=== PATIENT | female | born 1995 | race Caucasian/White ===

== ENCOUNTER → 2017-12-20 12:29 | Outpatient (CLI) | payer BC, MEDICAID, SELFPAY ==
[2017-12-20 13:40] LABS: Basophils % 0.4 % (0.1-2.0); Eosinophils % 0.2 % (0.1-12.0); Hematocrit 32.2 % (37.0-47.0); Hemoglobin 10.1 g/dL (12.2-16.2); Lymphocytes # 1.8 K/mm3 (0.7-4.5); Mean Corpuscular HGB Conc 31.4 g/dL (31.8-35.4); Mean Corpuscular Hemoglobin 27.6 pg (27.0-31.2); Mean Corpuscular Volume 88.1 fl (81-99); Mean Platelet Volume 7.6 fl (7.4-10.4); Monocytes # 0.4 K/mm3 (0.1-1.0); Monocytes % 4.9 % (1.7-9.3); Neutrophils # 5.8 K/mm3 (1.8-7.8); Neutrophils % 71.6 % (37.0-80.0); Platelet Count 268 K/mm3 (142-424); Red Blood Count 3.66 M/mm3 (4.20-5.40); Red Cell Distribution Width 14.5 % (11.5-17.5)
[2017-12-20 14:49] LABS: Free Thyroxine Index 4.2 ug/dL (5.93-13.13); T4 (Thyroxine) 17.4 ug/dl (4.7-13.3); Thyroid Stimulating Hormone 15.64 uIU/ml (0.358-3.740); Triiodothryronine (T3) Uptake 24 % (31-39)
== END ==
PROVIDERS: PCP Family Medicine; Visit Provider Nurse Practitioner Obstetrics & Gynecology
DX: Z34.90 Encounter for supervision of normal pregnancy, unspecified, unspecified trimester (principal); Z3A.27 27 weeks gestation of pregnancy; E03.9 Hypothyroidism, unspecified; D64.9 Anemia, unspecified
CPT/HCPCS: 36415; 84436; 84443; 84479; 85025

== ENCOUNTER → 2018-02-13 14:28 | Outpatient (CLI) | payer MEDICAID, SELFPAY ==
[2018-02-13 18:12] LABS: Free T4 (Free Thyroxine) 0.54 ng/dl (0.76-1.46)
[2018-02-13 18:17] LABS: Thyroid Stimulating Hormone 146.76 uIU/ml (0.358-3.740)
== END ==
PROVIDERS: Visit Provider Nurse Practitioner Obstetrics & Gynecology
DX: O99.280 Endocrine, nutritional and metabolic diseases complicating pregnancy, unspecified trimester (principal); Z34.90 Encounter for supervision of normal pregnancy, unspecified, unspecified trimester; Z3A.35 35 weeks gestation of pregnancy; Z86.39 Personal history of other endocrine, nutritional and metabolic disease; E07.9 Disorder of thyroid, unspecified
CPT/HCPCS: 36415; 84439; 84443; 86403

== ENCOUNTER 2018-03-17 06:48 | Inpatient (IN) ==
[2018-03-17 07:12] LABS: Microscopic, Urine URINE MICROSCOPIC (MICROSCOPIC)
[2018-03-17 07:13] LABS: Appearance,Urine CLOUDY (Clear); Bilirubin,Urine Negative (Negative); Blood, Urine 2+ (Negative); Color,Urine YELLOW (Yellow); Glucose,Urine (UA) Negative (Negative); Ketones,Urine Negative (Negative); Leukocyte Esterase,Urine 1+ (Negative); PH,Urine 7.5 (5.0-8.5); Protein,Urine Negative (Negative); Specific Gravity, Urine <= 1.005 (1.005-1.030); Urobilinogen,Urine 0.2 EU/dl (0.2)
[2018-03-17 07:22] LABS: Bacteria,Urine 4+ /lpf
[2018-03-17 07:23] LABS: Amphetamine/Metha Screen,Urine Negative ng/mL (<1000); Barbiturates Screen,Urine Negative ng/mL (<200); Benzodiazepines Screen,Urine Negative ng/mL (<200); Cannabinoid Screen,Urine Negative ng/mL (<50); Cocaine Screen,Urine Negative ng/mL (<300); Methadone Screen,Urine Negative ng/mL (<300); Opiate Screen,Urine Negative ng/mL (<300); Phencyclidine Screen,Urine Negative ng/mL (<25)
[2018-03-17 07:25] VITALS: BP 116/81
[2018-03-17 08:17] LABS: Basophils % 0.3 % (0.1-2.0); Eosinophils # 0.1 K/mm3 (0.0-0.4); Hematocrit 42.1 % (37.0-47.0); Hemoglobin 13.8 g/dL (12.2-16.2); Lymphocytes # 2.1 K/mm3 (0.7-4.5); Lymphocytes % 30.4 K/mm3 (10-50); Mean Corpuscular HGB Conc 32.8 g/dL (31.8-35.4); Mean Corpuscular Hemoglobin 30.9 pg (27.0-31.2); Mean Corpuscular Volume 94.2 fl (81-99); Mean Platelet Volume 7.4 fl (7.4-10.4); Monocytes # 0.6 K/mm3 (0.1-1.0); Monocytes % 8.1 % (1.7-9.3); Neutrophils # 4.1 K/mm3 (1.8-7.8); Neutrophils % 60.2 % (37.0-80.0); Platelet Count 258 K/mm3 (142-424); Red Blood Count 4.46 M/mm3 (4.20-5.40); Red Cell Distribution Width 19.4 % (11.5-17.5); White Blood Count 6.9 K/mm3 (4.8-10.8)
--- NOTE | 2018-03-17 10:03 | History & Physical Report ---
OB - H&P: HPI Antepartum - History of Present Illness Chief complaint: Contractions and ruptured membranes. History of present illness: She is a 22-year-old 1 para 0 at 40+ weeks gestational age. She ruptured her membranes at 5 AM this morning and was having contractions. She came into labor and delivery. [facility] History I have reviewed the patient's past medical history: Yes Medical History: Denies:: Anxiety, Asthma, Cancer, Depression, Diabetes Mellitus Type 1, Diabetes Mellitus Type 2, Hypertension, MRSA, Seizures Other Medical History: Reports: Hypothyroidism Other Surgeries: Yes: No Previous Surgery. No: Amputation: No Fractures: No - *Social History Educational Level: Completed High School Smoking Status: Former smoker Tobacco Type: e-cigarettes #Yrs smoked (if former smoker): 1 Smoking End Date: 08/27/2016 Alcohol Intake: never Substance Use Type: denies use Occupational Status: unemployed - Psychiatric History Expresses thoughts of harming self/others: None Suicide Plan Description: No Plan Pschychiatric History:: Denies:: Anxiety, Depression *Family Hx:: Thyroid Disorder, Asthma Para: 0 Review of Systems - Review of Systems Review of systems:: pertinent systems reviewed and negative unless documented below Meds Home Medications Medication Instructions Recorded Confirmed Type Ferrous Sulfate 325 mg PO DAILY 03/17/18 03/17/18 History Vit Calc,Iron,Folic [Kpn] 1 tab PO QHS 03/17/18 03/17/18 History Allergies Allergy/AdvReac Type Severity Reaction Status Date / Time codeine Allergy Intermediate swelling Verified 03/11/18 11:01 in face OB - H&P: Exam - Physical Exam Vital signs: Temp Pulse Resp BP Pulse Ox 98.0 F 102 H 24 116/81 100 03/17/18 07:21 03/17/18 07:21 03/17/18 07:21 03/17/18 07:21 03/17/18 07:21 - Constitutional no acute distress - Routine HEENT Exam Head: Present: normocephalic - Routine Neck Exam Present: full ROM - Routine Respiratory Exam Comments: She is breathing well and not in any respiratory distress. - Routine Exam Comments: Her cervix is 1-2 cm 75 and station -3. She has clear fluid. OB - Results - Labs Labs: Short CBC 03/17/18 Range/Units 08:01 WBC 6.9 (4.8-10.8) K/mm3 Hgb 13.8 (12.2-16.2) g/dL Hct 42.1 (37.0-47.0) % Plt Count 258 (142-424) K/mm3 Urine 03/17/18 Range/Units 06:55 Urine Color Yellow (Yellow) Urine Appearance Cloudy (Clear) Urine pH 7.5 (5.0-8.5) Ur Specific [place] <= 1.005 (1.005-1.030) Urine Protein Negative (Negative) Urine Glucose (UA) Negative (Negative) OB - A/P Antepartum (1) Spontaneous rupture of membranes Current visit: Yes Status: Acute - Additional Plan Planning to breastfeed?: Yes Plan: expectant management Additional Information:: She is 2 cm 75% Station -3. She had rupture of membranes with clear fluid. She continues to leak clear fluid. The nonstress test is reactive. She is having contractions every 3-4 minutes. We will go ahead and start oxytocin. She will get an epidural when she is uncomfortable.
--- NOTE | 2018-03-17 11:31 | Progress Note ---
[facility] Anesthesia Checklist - Patient Identification Patient Identification: Arm Band, Verbal (Name & ) - Structural Data Admitted From: Home Planned Operative Procedure/s: Labor Epidural Consent for Planned Operative Procedure(s) Verified: Yes Verified Documents: Surgical Consent, History and Physical - Additional verifications Patient : Yes Anesthesia Reactions: No - Airway Assessment C-Spine Mobility Assessed: Yes TMJ Mobility Assessed: Yes Dentition: Good Dentition - Neurological Assessment Level of Consciousness: Awake Hx Seizures: No Numbness or tingling in extremities: No - Anesthesia Plan Anesthesia Risk discussed: Yes Anesthesia Plan: Verified ASA Class: II Anesthesia Type: Epidural [facility] Anesthesia HX I have reviewed the patient's past medical history: Yes Medical History: Denies:: Anxiety, Asthma, Cancer, Depression, Diabetes Mellitus Type 1, Diabetes Mellitus Type 2, Hypertension, MRSA, Seizures Other Medical History: Reports: Hypothyroidism Other Surgeries: Yes: No Previous Surgery. No: Amputation: No Fractures: No *Family Hx:: Thyroid Disorder, Asthma
--- NOTE | 2018-03-17 13:54 | Progress Note ---
Labor Note - Subjective: Date: 03/17/18 Time: 13:54 regular contraction - Objective: NST:: Reactive Contractions:: every 2-3 minutes Cervical Dilation:: 4 Effacement:: 100% Station: -1 Membranes: spontaneously ruptured - Fetus: Monitoring?: Yes monitoring type:: External - Assessment: Labor progressing?: Yes Cephalopelvic disproportion?: No Patient Problems: All Active Problems Spontaneous rupture of membranes (Acute) Anemia affecting in third trimester (Acute) Hypothyroidism (Chronic) Hx of Santos thyroiditis (Chronic) (Acute) - Plan: Anesthesia for epidural?: Yes Continue to labor down?: Yes Plan for ?: No Continue to monitor?: Yes Start pushing?: No
--- NOTE | 2018-03-17 18:05 | Progress Note ---
Labor Note - Subjective: Date: 03/17/18 Time: 18:04 regular contraction - Objective: NST:: Reactive Contractions:: every 2-3 minutes Cervical Dilation:: 8-9 Effacement:: 100% Station: 0 Membranes: spontaneously ruptured - Fetus: Monitoring?: Yes monitoring type:: External - Assessment: Labor progressing?: Yes Cephalopelvic disproportion?: No Patient Problems: All Active Problems Spontaneous rupture of membranes (Acute) Anemia affecting in third trimester (Acute) Hypothyroidism (Chronic) Hx of Santos thyroiditis (Chronic) (Acute) - Plan: Anesthesia for epidural?: Yes Continue to labor down?: Yes Plan for ?: No Continue to monitor?: Yes Start pushing?: No
--- NOTE | 2018-03-17 21:14 | Progress Note ---
Labor Note - Subjective: Date: 03/17/18 Time: 21:13 regular contraction - Objective: NST:: Reactive Contractions:: every 2-3 minutes Cervical Dilation:: 9-10 Effacement:: 100% Station: +1 Membranes: spontaneously ruptured - Fetus: Monitoring?: Yes monitoring type:: External - Assessment: Labor progressing?: Yes Cephalopelvic disproportion?: No Patient Problems: All Active Problems Spontaneous rupture of membranes (Acute) Anemia affecting in third trimester (Acute) Hypothyroidism (Chronic) Hx of Santos thyroiditis (Chronic) (Acute) - Plan: Anesthesia for epidural?: Yes Continue to labor down?: Yes Plan for ?: No Continue to monitor?: Yes Start pushing?: Yes Comment:: We will go ahead and see how she does with put it the baby's head still seems to be a little high. Hopefully she can bring the head down. She has been 9 cm for approximately 3 hours. If she does not bring the head down we will plan a C -section.
--- NOTE | 2018-03-17 23:05 | Procedure Note ---
- Delivery Note Delivery Date:: 03/17/18 Delivery Time:: 22:50 Anesthesia Type: Epidural Was labor medically induced?: No Infant delivered prior to 39 weeks?: No Justification for early elective delivery:: Active Labor Gender: Male at 1 minute: 9 at 5 minutes: 9 AF:: Clear fluid LAC or MLE?: LAC Delivery Procedure:: She is a 22-year-old 1 para 0 who was 40+2 weeks gestational age. She came in with ruptured drains on the morning of of March 17, 2018. She subsequently was started on IV oxytocin and under labor epidural progressed to full dilation. She delivered spontaneously a liveborn male child at 10:50 PM in the evening of March 17, 2018. On deliver the head it was noted that there was a cord around the shoulder but it was not nuchal. I allowed the wheeze anterior shoulder to deliver this was followed by the rest of the infant's body atraumatically. I was then able to easily unwind the cord from the baby's abdomen. The oropharynx and nasopharynx were bulb suctioned. The baby cried spontaneously. The cord was then clamped and cut and the was handed off to nurses who assigned Apgars of 9 at 1 minute and 9 at 5 minutes. We then obtained cord blood as well as cord pH. Using gentle traction on the cord and countertraction on the fundus I was able to easily deliver the placenta intact. He had a normal three-vessel cord. She had a small first-degree vaginal laceration that was repaired with interrupted 3 -0 Vicryl Rapide suture. Her estimated blood loss was approximately 400 cc. Laceration:: vaginal Placental Delivery Description: Spontaneous
[2018-03-18 06:58] LABS: Hematocrit 34.7 % (37.0-47.0); Hemoglobin 11.6 g/dL (12.2-16.2)
--- NOTE | 2018-03-18 08:59 | Progress Note ---
Internal Medicine - PN: Subj *Date: 03/18/18 *Time: 08:58 Interval history: She continues to do well this morning. She is eating and drinking and ambulating. She is bottlefeeding. Her lochia is normal. Exam Vital signs and Labs for Last 24 Hours: Temp Pulse Resp BP Pulse Ox 98.0 F 102 H 24 116/81 100 03/17/18 07:21 03/17/18 07:21 03/17/18 07:21 03/17/18 07:21 03/17/18 07:21 Laboratory Results - last 24 hr 03/17/18 08:01: WBC 6.9, RBC 4.46, Hgb 13.8, Hct 42.1, MCV 94.2, MCH 30.9, MCHC 32.8, RDW 19.4 H, Plt Count 258, MPV 7.4, Neut % (Auto) 60.2, Lymph % (Auto) 30.4, [place] % (Auto) 8.1, Eos % (Auto) 1.0, Baso % (Auto) 0.3, Neut # (Auto) 4.1 , Lymph # (Auto) 2.1, [place] # (Auto) 0.6, Eos # (Auto) 0.1, Baso # (Auto) 0.0 03/17/18 08:01: Antibody Screen Negative 03/17/18 23:11: Cord ABG pH 7.35 03/18/18 06:30: Hgb 11.6 L D, Hct 34.7 L I & O for Last 24 hours: Intake & Output 03/15/18 03/16/18 03/17/18 03/18/18 11:59 11:59 11:59 11:59 Intake Total 1600 / 1600 Output Total 200 / 200 Balance 1400 / 1400 Weight 150 lb 0.005 oz Microbiology Reports for the Last 24 Hours: Microbiology 03/17/18 06:55 Urine,Clean Catch Urine Culture - Preliminary NO GROWTH AFTER 24 HOURS - Constitutional no acute distress Assessment and Plan (1) Spontaneous rupture of membranes Current visit: Yes Status: Acute Category: Medical (2) Normal delivery Current visit: Yes Status: Acute Category: Medical Code(s): O80 - Encounter for full-term uncomplicated delivery (3) Anemia affecting in third trimester Problem details: 10.1 Current visit: No Status: Acute Category: Medical Code(s): O99.013 - Anemia complicating , third trimester (4) Hx of Santos thyroiditis Current visit: No Status: Chronic Category: Medical Code(s): Z86.39 - Personal history of other endocrine, nutritional and metabolic disease (5) Hypothyroidism Problem details: synthroid 125--increased to 150 at 33 wks Current visit: No Status: Chronic Category: Medical Code(s): E03.9 - Hypothyroidism, unspecified - Assessment and plan all Dx Assessment and Plan for all problems:: She continues to do very well. We will plan to send her home tomorrow.
--- NOTE | 2018-03-19 08:44 | Discharge Summary ---
General - General Admission date:: 03/17/18 Discharge date: 03/19/18 HPI HPI: She is a 22-year-old 1 now para 1 who was 40 and 2 weeks gestational age. She spontaneously ruptured membranes at home and came in in early labor. Hospital Course Hospital Course: Her membranes were shown to be possibly ruptured and she was augmented with oxytocin. Under labor epidural she progressed to full dilation and delivered spontaneously a liveborn male child at 10:50 PM the evening of March 17, 2018. The baby weighed 8 lbs. 13 oz. and was 20 1/2 inches long. He had Apgars of 9 at 1 minute and 9 at 5 minutes. She has done well and has remained afebrile throughout her hospitalization. She is eating and drinking and ambulating. She is breast- feeding. She has O+ blood, she is rubella and was group A streptococcus negative. She is discharged home to follow-up with me in approximately 2 weeks time. She will continue with her vitamins and iron. She is just taking over-the- counter analgesics. She was given the usual instructions with respect to limiting her activity, driving and sexual activity. Objective Vital signs: Temp Pulse Resp BP Pulse Ox 98.0 F 102 H 24 116/81 100 03/17/18 07:21 03/17/18 07:21 03/17/18 07:21 03/17/18 07:21 03/17/18 07:21 no acute distress DS: Diagnosis - Discharge Diagnosis (1) Spontaneous rupture of membranes Status: Acute (2) Normal delivery Status: Acute (3) Anemia affecting in third trimester Status: Acute Problem details: 10.1 (4) Hx of Santos thyroiditis Status: Chronic (5) Hypothyroidism Status: Chronic Problem details: synthroid 125--increased to 150 at 33 wks Discharge Plan - Patient Discharge Instructions ACTIVITY: No heavy lifting DIET: continue same diet - Follow up Plan Disposition: Home, Self-Assisted Medications: Home Medications Medication Instructions Recorded Confirmed Type Ferrous Sulfate 325 mg PO DAILY 03/17/18 03/17/18 History Levothyroxine Sodium [Synthroid 150 mcg PO DAILY 03/17/18 03/17/18 History 150mcg (0.15mg) tablet] Vit Calc,Iron,Folic [Kpn] 1 tab PO HS 07/22/18 07/22/18 History Prescriptions/Medication Reconciliation: Continue Vit Calc,Iron,Folic [Kpn] 1 tab PO HS Levothyroxine Sodium [Synthroid 150mcg (0.15mg) tablet] 150 mcg PO DAILY Ferrous Sulfate 325 mg PO DAILY
[2018-03-20 06:16] LABS: HIV Screen 4th Generation wRfx Non Reactive (Non Reactive); Hepatitis B Surface Antigen Negative (Negative); Rapid Plasma Reagin Ab Titer Non Reactive (NonRea<1:1)
== END 2018-03-19 13:00 | disposition home or self-care (01) ==
LOC: OBOUT 06:48 → OB 06:51
PROVIDERS: ADMIT Nurse Practitioner Obstetrics & Gynecology; ATTEND Nurse Practitioner Obstetrics & Gynecology

== ENCOUNTER → 2021-04-08 10:24 | Outpatient (CLI) | payer MEDICAID, SELFPAY ==
[2021-04-08 11:04] LABS: Basophils # 0.1 K/mm3 (0-0.2); Basophils % 0.6 % (0.1-2.0); Eosinophils % 0.5 % (0.1-12.0); Hematocrit 37.2 % (37.0-47.0); Lymphocytes # 1.8 K/mm3 (0.7-4.5); Lymphocytes % 20.5 % (10-50); Mean Corpuscular Hemoglobin 31.9 pg (27.0-31.2); Mean Corpuscular Volume 91.2 fl (81-99); Mean Platelet Volume 6.9 fl (7.4-10.4); Monocytes # 0.4 K/mm3 (0.1-1.0); Monocytes % 4.5 % (1.7-9.3); Neutrophils # 6.5 K/mm3 (1.8-7.8); Platelet Count 259 K/mm3 (142-424); Red Blood Count 4.08 M/mm3 (4.20-5.40); Red Cell Distribution Width 14.3 % (11.5-17.5); White Blood Count 8.7 K/mm3 (4.8-10.8)
[2021-04-09 05:15] LABS: HIV Screen 4th Generation wRfx Non Reactive (Non Reactive)
[2021-04-09 07:30] LABS: HSV 1 IgG, Type Spec <0.91 index (0.00-0.90); HSV 2 IgG, Type Spec <0.91 index (0.00-0.90); Rubella Antibodies, IgG 4.63 index (Immune >0.99)
[2021-04-09 08:13] LABS: Hepatitis B Surface Antigen Negative (Negative); Hepatitis C Antibody <0.1 s/co ratio (0.0-0.9)
[2021-04-09 12:55] LABS: Rapid Plasma Reagin Ab Titer Non Reactive (NonRea<1:1)
== END ==
PROVIDERS: Visit Provider Nurse Practitioner Obstetrics & Gynecology
DX: Z34.90 Encounter for supervision of normal pregnancy, unspecified, unspecified trimester (principal)
CPT/HCPCS: 36415; 85025; 86592; 86695; 86703; 86762; 86790; 86850; 87340; 87380; G0432

== ENCOUNTER → 2021-05-27 09:58 | Outpatient (CLI) | payer MEDICAID, SELFPAY ==
--- NOTE | 2021-05-27 09:58 | US_ITS ---
PROCEDURE: US OB >= 14 WEEKS FETUS CLINICAL INDICATION: anatomy; no early OB u/s; BENEDICT by LMP COMPARISON: No exams were available for comparison FINDINGS: There is a single live fetus present in breech presentation. heart body motion noted. Cervix is closed measuring 4 cm in length. The placenta is posterior and grade 1. No previa or abruption. Complete survey performed and was unremarkable on the submitted images as in PACS. No discrete anomalies identified on survey imaging by technologist. Active fetus. Three-vessel cord with satisfactory umbilical cord insertion. 4- chamber heart noted. Survey of brain & ventricles Unremarkable. Face and neck survey unremarkable. Diaphragm and chest views unremarkable. Abdomen: Both kidneys noted and unremarkable. Stomach noted and satisfactory. Spine: Survey of the spine satisfactory with no anomalies identified nor imaged. Both arms and legs noted. Amniotic Fluid: Adequate. Maternal adnexa: No significant findings. Measurements: Average ultrasound age 19weeks 5days. Gestational Age 19weeks 5days Estimated due date by ultrasound age 0210/16/2021. Estimated weight 318g BPD = 19weeks 5days OFD = 19weeks 5days HC = 19weeks AC = 20weeks FL = 20weeks Growth Percentile= 38% Heart Rate = Cerebellum = 20weeks Humerus = 20weeks HC/AC is 1.09 CI is 0.8 FL/BPD is 0.71 FL/AC is 0.22 IMPRESSION: Live IUP in breech presentation with an average ultrasound age of 19 weeks 5 days. No obvious anomalies. Please see above for detail Dictated by: Jordon Curran MD 05/27/2021 15:41 Jordon Curran MD in [facility] 05/27/2021 15:41
== END ==
PROVIDERS: PCP Family Medicine; Visit Provider Nurse Practitioner Obstetrics & Gynecology
DX: Z34.90 Encounter for supervision of normal pregnancy, unspecified, unspecified trimester (principal)
CPT/HCPCS: 76805

== ENCOUNTER 2021-07-13 10:38 | Outpatient (CLI) | payer MEDICAID, SELFPAY ==
[2021-07-13 10:49] VITALS: BMI 24.9
[2021-07-13 11:07] LABS: Microscopic, Urine URINE MICROSCOPIC (MICROSCOPIC)
[2021-07-13 11:24] VITALS: BP 107/67; PULSE 97; RESP 16; TEMP 36.9; O2SAT 100; BMI 25.7
[2021-07-13 11:24] LABS: Appearance,Urine CLEAR (Clear); Bilirubin,Urine Negative (Negative); Blood, Urine 3+ (Negative); Color,Urine YELLOW (Yellow); Glucose,Urine (UA) Negative (Negative); Ketones,Urine Negative (Negative); Leukocyte Esterase,Urine 1+ (Negative); Nitrate,Urine Negative (Negative); Protein,Urine TRACE (Negative); Urobilinogen,Urine 0.2 EU/dl (0.2)
[2021-07-13 13:07] LABS: Barbiturates Screen,Urine Negative ng/ml (<200)
[2021-07-13 13:08] LABS: Amphetamine/Metha Screen,Urine Negative ng/ml (<1000); Benzodiazepines Screen,Urine Negative ng/ml (<200)
[2021-07-13 13:09] LABS: Cannabinoid Screen,Urine Negative ng/ml (<50); Methadone Screen,Urine Negative ng/ml (<300)
[2021-07-13 13:10] LABS: Cocaine Screen,Urine Negative ng/ml (<300)
[2021-07-13 13:11] LABS: Opiate Screen,Urine Negative ng/ml (<300); Phencyclidine Screen,Urine Negative ng/ml (<25)
== END 2021-07-13 14:05 | disposition home or self-care (01) ==
LOC: OBOUT 10:40 → OB 10:42
PROVIDERS: Visit Provider Nurse Practitioner Obstetrics & Gynecology
DX: O26.892 Other specified pregnancy related conditions, second trimester (principal); Z3A.26 26 weeks gestation of pregnancy; R10.30 Lower abdominal pain, unspecified
CPT/HCPCS: 59025; 80305; 81001; 87086; 87088; 87186; 96365; 96367; G0463

== ENCOUNTER → 2021-09-15 15:16 | Outpatient (CLI) | payer MEDICAID, SELFPAY | LOC: LAB 15:16 → LAB.DROPOF 09-16 09:00 | PROVIDERS: Visit Provider Nurse Practitioner Obstetrics & Gynecology | DX: Z34.90 Encounter for supervision of normal pregnancy, unspecified, unspecified trimester (principal) | CPT/HCPCS: 86403 ==

== ENCOUNTER 2021-09-17 23:44 | Outpatient (CLI) | payer MEDICAID, SELFPAY ==
[2021-09-17 23:55] VITALS: BMI 28.2
[2021-09-18 00:20] VITALS: BP 108/71; PULSE 99; RESP 16; TEMP 36.8; O2SAT 100; BMI 28.2
[2021-09-18 00:21] LABS: Microscopic, Urine URINE MICROSCOPIC (MICROSCOPIC)
[2021-09-18 00:26] LABS: Appearance,Urine SL CLOUDY (Clear); Bilirubin,Urine Negative (Negative); Blood, Urine 1+ (Negative); Color,Urine YELLOW (Yellow); Glucose,Urine (UA) Negative (Negative); Ketones,Urine Negative (Negative); Leukocyte Esterase,Urine TRACE (Negative); Nitrate,Urine Negative (Negative); Protein,Urine Negative (Negative); Specific Gravity, Urine 1.015 (1.005-1.030); Urobilinogen,Urine 0.2 EU/dl (0.2)
[2021-09-18 00:30] LABS: Bacteria,Urine 2+ /lpf; RBC,Urine Occasional #/hpf (0-3)
[2021-09-18 00:33] LABS: Fetal Membrane Rupture (Rapid) Negative (Negative)
[2021-09-18 00:37] LABS: Barbiturates Screen,Urine Negative ng/ml (<200); Benzodiazepines Screen,Urine Negative ng/ml (<200)
[2021-09-18 00:38] LABS: Amphetamine/Metha Screen,Urine Negative ng/ml (<1000)
[2021-09-18 00:39] LABS: Cannabinoid Screen,Urine Negative ng/ml (<50); Methadone Screen,Urine Negative ng/ml (<300)
[2021-09-18 00:40] LABS: Cocaine Screen,Urine Negative ng/ml (<300); Opiate Screen,Urine Negative ng/ml (<300)
[2021-09-18 00:41] LABS: Phencyclidine Screen,Urine Negative ng/ml (<25)
== END 2021-09-18 01:05 | disposition home or self-care (01) ==
LOC: OBOUT 23:46 → OB 23:48
PROVIDERS: Referring Provider Nurse Practitioner Obstetrics & Gynecology; Visit Provider Obstetrics & Gynecology
DX: O26.893 Other specified pregnancy related conditions, third trimester (principal); Z3A.36 36 weeks gestation of pregnancy
CPT/HCPCS: 80305; 81001; 84112; 87086

== ENCOUNTER 2021-10-10 05:07 | Inpatient (IN) | payer MEDICAID, SELFPAY ==
[2021-10-10 05:09] VITALS: BP 91/69; PULSE 105; RESP 18; TEMP 36.7; O2SAT 99; BMI 28.8
[2021-10-10 05:57] LABS: Coronavirus 19, PCR Not Detected (NotDetected); Influenza A, PCR Not Detected (NotDetected); Influenza B, PCR Not Detected (NotDetected)
[2021-10-10 05:57] LABS: Microscopic, Urine URINE MICROSCOPIC (MICROSCOPIC)
[2021-10-10 05:57] LABS: MANUAL DIFFERENTIAL MANUAL DIFFERENTIAL (MANUAL DIFF)
[2021-10-10 06:12] LABS: Basophils # 0.1 K/mm3 (0-0.2); Basophils % 1.4 % (0.1-2.0); Eosinophils # 0.1 K/mm3 (0.0-0.4); Eosinophils % 0.8 % (0.1-12.0); Hematocrit 32.8 % (37.0-47.0); Hemoglobin 10.2 g/dL (12.2-16.2); Lymphocytes # 2.2 K/mm3 (0.7-4.5); Lymphocytes % 30.3 % (10-50); Mean Corpuscular HGB Conc 31.3 g/dL (31.8-35.4); Mean Corpuscular Hemoglobin 26.9 pg (27.0-31.2); Mean Corpuscular Volume 86.1 fl (81-99); Mean Platelet Volume 7.7 fl (7.4-10.4); Monocytes # 0.5 K/mm3 (0.1-1.0); Monocytes % 7.2 % (1.7-9.3); Neutrophils # 4.4 K/mm3 (1.8-7.8); Neutrophils % 60.4 % (37.0-80.0); Platelet Count 367 K/mm3 (142-424); Red Blood Count 3.81 M/mm3 (4.20-5.40); Red Cell Distribution Width 19.2 % (11.5-17.5); White Blood Count 7.3 K/mm3 (4.8-10.8)
[2021-10-10 06:16] LABS: Appearance,Urine CLEAR (Clear); Bilirubin,Urine Negative (Negative); Blood, Urine 1+ (Negative); Color,Urine YELLOW (Yellow); Glucose,Urine (UA) Negative (Negative); Ketones,Urine Negative (Negative); Leukocyte Esterase,Urine 2+ (Negative); Nitrate,Urine Negative (Negative); Protein,Urine Negative (Negative); Urobilinogen,Urine 0.2 EU/dl (0.2)
[2021-10-10 06:19] LABS: WBC,Urine 20-50 #/hpf (0-3)
[2021-10-10 06:25] LABS: Amphetamine/Metha Screen,Urine Negative ng/ml (<1000)
[2021-10-10 06:26] LABS: Barbiturates Screen,Urine Negative ng/ml (<200); Benzodiazepines Screen,Urine Negative ng/ml (<200)
[2021-10-10 06:27] LABS: Cannabinoid Screen,Urine Negative ng/ml (<50); Cocaine Screen,Urine Negative ng/ml (<300)
[2021-10-10 06:28] LABS: Methadone Screen,Urine Negative ng/ml (<300)
[2021-10-10 06:29] LABS: Opiate Screen,Urine Negative ng/ml (<300); Phencyclidine Screen,Urine Negative ng/ml (<25)
--- NOTE | 2021-10-10 07:22 | HMH.PHAINT ---
MEDICATION RECONCILIATION COMPLETED ON PATIENT USING EXTERNAL FILL HISTORY FROM PHARMACY. -SHAN SOLIS, RAJAND
[2021-10-10 07:42] LABS: Lymphocytes % 30 % (10-50); Monocytes % 8 % (2-9); Neutrophils % 61 % (42-76); Nucleated Red Blood Cells 1; Total Cells Counted 100
[2021-10-10 07:43] LABS: Hypochromasia 1+; Platelet Estimate Normal
--- NOTE | 2021-10-10 09:45 | HMH.OBAPHP ---
OB - H&P: HPI Antepartum - History of Present Illness Chief complaint: Term History of present illness: She is a 26-year-old 2 para 1 at 39+ weeks gestational age. She is admitted for delivery. - History of Present Criteria for establishing EDC:: LMP confirmed by 1st trimester US care: good care Ultrasounds: normal 1st trimester US, normal mid trimester US Obstetrical complications: none Medical complications: none - Labs Blood type: O (+) positive Rubella: immune RPR/VDRL: nonreactive GBS status: negative HBsAG: negative [facility] History I have reviewed the patient's past medical history: Yes Medical History: Denies:: Anxiety, Asthma, Cancer, Depression, Diabetes Mellitus Type 1, Diabetes Mellitus Type 2, Hypertension, MRSA, Seizures *Have you ever received a pneumonia vaccine?: No *Have you received a flu vaccine this season?: No Other Medical History: Reports: Hypothyroidism Other Surgeries: Yes: No Previous Surgery. No: Amputation: No Fractures: No - *Social History Smoking Status: Never smoker #Yrs smoked (if former smoker): 1 Alcohol Intake: never Substance Use Type: denies use *Occupational Status:: unemployed *Travel in the last 8 weeks: None - Psychiatric History Pschychiatric History:: Denies:: Anxiety, Depression Family Hx:: Thyroid Disorder, Asthma Para: 1 Review of Systems - Review of Systems Review of systems:: pertinent systems reviewed and negative unless documented below Meds Home Medications Medication Instructions Recorded Confirmed Type Vit No.126/Iron/Folic 1 tab PO DAILY 09/18/21 10/10/21 History [Classic ] Ferrous Sulfate 325 mg PO DAILY 10/10/21 10/10/21 History Levothyroxine Sodium [Synthroid 112 mcg PO DAILY 10/10/21 10/10/21 History 112mcg (0.112mg) tablet] Allergies Allergy/AdvReac Type Severity Reaction Status Date / Time codeine Allergy Intermediate swelling Verified 10/07/21 09:26 in face OB - H&P: Exam - Physical Exam Vital signs: Temp Pulse Resp BP Pulse Ox 98.1 F 105 H 18 91/69 L 99 10/10/21 05:09 10/10/21 05:09 10/10/21 05:09 10/10/21 05:09 10/10/21 05:09 - Constitutional no acute distress - Routine HEENT Exam Head: Present: normocephalic Eye: Present: EOMI, PERRL ENT: Present: mucous membranes moist - Routine Neck Exam Present: supple, full ROM - Routine Respiratory Exam Absent: accessory muscle use (good air entry bilaterally), respiratory distress, wheezes, crackles - Routine Cardiovascular Exam Present: RRR. Absent: murmur - Routine Abdominal Exam Present: soft, normoactive bowel sounds. Absent: tenderness, distended, guarding - Routine Rectal Exam Patient deferred: visual exam, digital exam - Routine Exam Patient deferred: external exam, groin exam, perineal exam - Routine Extremities Exam Present: full ROM. Absent: cyanosis, edema - Routine Skin Exam Present: intact. Absent: cyanosis - Routine Neurological Exam Present: alert, oriented X3 - Routine Psychiatric Exam Present: normal affect OB - Results - Labs Labs: Short CBC 10/10/21 Range/Units 05:45 WBC 7.3 (4.8-10.8) K/mm3 Hgb 10.2 L (12.2-16.2) g/dL Hct 32.8 L (37.0-47.0) % Plt Count 367 (142-424) K/mm3 Urine 10/10/21 Range/Units 05:20 Urine Color Yellow (Yellow) Urine Appearance Clear (Clear) Urine pH 7.0 (5.0-8.5) Ur Specific [place] 1.010 (1.005-1.030) Urine Protein Negative (Negative) Urine Glucose (UA) Negative (Negative) OB - A/P Antepartum (1) Normal delivery at term Status: Acute (2) Hx of Santos thyroiditis Status: Chronic (3) Hypothyroidism Problem details: synthroid 125--increased to 150 at 33 wks Status: Chronic
--- NOTE | 2021-10-10 09:47 | HMH.LABNOT ---
Labor Note - Subjective: Date: 10/10/21 Time: 09:47 regular contraction - Objective: NST:: Reactive Contractions:: every 2-3 minutes Cervical Dilation:: 2-3 Effacement:: 50% Station: -2 Membranes: artificially ruptured - Fetus: Monitoring?: Yes monitoring type:: External - Assessment: Labor progressing?: Yes Cephalopelvic disproportion?: No Patient Problems: All Active Problems Normal delivery at term (Acute) (Acute) Hypothyroidism (Chronic) Hx of Santos thyroiditis (Chronic) - Plan: Anesthesia for epidural?: Yes Continue to labor down?: Yes Plan for ?: No Continue to monitor?: Yes Start pushing?: No Comment:: I ruptured her membranes and there was clear fluid.
--- NOTE | 2021-10-10 11:20 | P.PN_ITS ---
[facility] Anesthesia Checklist - Patient Identification Patient Identification: Arm Band - Structural Data Admitted From: Inpatient Planned Operative Procedure/s: Labor epidural Consent for Planned Operative Procedure(s) Verified: Yes - NPO Status Verified Time NPO: 00:00 - Additional verifications Anesthesia Reactions: No - Airway Assessment C-Spine Mobility Assessed: Yes TMJ Mobility Assessed: Yes Dentition: Good Dentition - Neurological Assessment Level of Consciousness: Awake Hx Seizures: No Numbness or tingling in extremities: No - Anesthesia Plan Anesthesia Risk discussed: Yes Anesthesia Plan: Verified ASA Class: II Anesthesia Type: Epidural [facility] History Medical History: Denies:: Anxiety, Asthma, Cancer, Depression, Diabetes Mellitus Type 1, Diabetes Mellitus Type 2, Hypertension, MRSA, Seizures *Have you ever received a pneumonia vaccine?: No *Have you received a flu vaccine this season?: No Other Medical History: Reports: Hypothyroidism Anesthesia experience/problems:: None Other Surgeries: Yes: No Previous Surgery. No: Amputation: No Fractures: No - *Social History Smoking Status: Never smoker #Yrs smoked (if former smoker): 1 Alcohol Intake: never Substance Use Type: denies use *Occupational Status:: unemployed *Travel in the last 8 weeks: None - Psychiatric History Pschychiatric History:: Denies:: Anxiety, Depression Family Hx:: Thyroid Disorder, Asthma Para: 1
--- NOTE | 2021-10-10 11:34 | HMH.LABNOT ---
Labor Note - Subjective: Date: 10/10/21 Time: 11:34 regular contraction - Objective: NST:: Reactive Contractions:: every 2-3 minutes Cervical Dilation:: 3-4 Effacement:: 50% Station: -2 Membranes: artificially ruptured - Fetus: Monitoring?: Yes monitoring type:: Internal and External Comment:: I inserted an IUPC. - Assessment: Labor progressing?: Yes Cephalopelvic disproportion?: No Patient Problems: All Active Problems Normal delivery at term (Acute) (Acute) Hypothyroidism (Chronic) Hx of Santos thyroiditis (Chronic) - Plan: Anesthesia for epidural?: Yes Continue to labor down?: Yes Plan for ?: No Continue to monitor?: Yes Start pushing?: No Continue pushing?: No Comment:: I inserted IPC. She is zeina well. We will continue to monitor closely. She has an epidural now.
[2021-10-10 12:00] VITALS: BP 102/57; PULSE 81; RESP 18; TEMP 36.5; O2SAT 99
--- NOTE | 2021-10-10 13:59 | HMH.LABNOT ---
Labor Note - Subjective: Date: 10/10/21 Time: 13:59 irregular contractions - Objective: NST:: Reactive Contractions:: every 2-3 minutes Cervical Dilation:: 4 Effacement:: 50% Station: -3 Membranes: artificially ruptured - Fetus: Monitoring?: Yes monitoring type:: Internal and External - Assessment: Labor progressing?: No Cephalopelvic disproportion?: No Patient Problems: All Active Problems Normal delivery at term (Acute) (Acute) Hypothyroidism (Chronic) Hx of Santos thyroiditis (Chronic) - Plan: Anesthesia for epidural?: Yes Continue to labor down?: Yes Plan for ?: No Continue to monitor?: Yes Start pushing?: No Additional information:: The head seems a little high. I wonder whether it somewhat asynclitic. We will set her up a little higher and will use a peanut ball. We will get her contractions a little closer together. She did have problems with her epidural and it has now been redone.
--- NOTE | 2021-10-10 15:29 | HMH.LABNOT ---
Labor Note - Subjective: Date: 10/10/21 Time: 15:29 regular contraction - Objective: NST:: Reactive Contractions:: every 2-3 minutes Cervical Dilation:: 5 Effacement:: 90% Station: -1 Membranes: artificially ruptured - Fetus: Monitoring?: Yes monitoring type:: Internal - Assessment: Labor progressing?: Yes Cephalopelvic disproportion?: No Patient Problems: All Active Problems Normal delivery at term (Acute) (Acute) Hypothyroidism (Chronic) Hx of Santos thyroiditis (Chronic) - Plan: Anesthesia for epidural?: Yes Continue to labor down?: Yes Plan for ?: No Continue to monitor?: Yes Start pushing?: No Additional information:: I inserted an IUPC again as well as a scalp clip. She is doing well. The baby's head has come down. We will expect a vaginal delivery.
[2021-10-10 16:00] VITALS: BP 118/63; PULSE 96; RESP 18; TEMP 36.5; O2SAT 98
--- NOTE | 2021-10-10 16:53 | P.PCN_ITS ---
- Delivery Note Delivery Date:: 10/10/21 Delivery Time:: 16:39 Anesthesia Type: Epidural Was labor medically induced?: Yes Induction method: per pitocin protocol Gestational age (weeks): 39 delivered prior to 39 weeks?: No Gender: Female at 1 minute: 8 at 5 minutes: 8 Delivery Procedure:: She is a 26-year-old 2 para 1 at 39+ weeks gestational age. We elected to induce her labor at term. She was started on IV oxytocin and had her membranes ruptured. She progressed under labor epidural to full dilation and delivered spontaneously a liveborn female child at 4:39 PM in the afternoon of October 10, 2021. On delivery of the head it was noted that there was a nuchal cord. This was left in place and the baby was delivered around this. The rest of the 's body then delivered atraumatically. We allowed the cord to continue to pulsate for approximately 30 to 45 seconds. The cord was then doubly clamped and cut and the infant was placed on the mother's abdomen for further care. The nurses assigned Apgars of 8 at 1 minute and 8 at 5 minutes. She received IV oxytocin using gentle traction on the cord and countertraction on the fundus I was able to easily deliver the placenta intact at 4:42 PM. He had a normal three-vessel cord. There were no perineal or vaginal lacerations. She has O+ blood, she is rubella immune and was group B streptococcus negative. She plans to breast-feed. Her auto service instructor is Dr. Hagan. Estimated blood loss was approximately 150 cc. Placental Delivery Description: Spontaneous
[2021-10-10 20:00] VITALS: BP 110/73; PULSE 99; RESP 18; TEMP 36.9; O2SAT 97
[2021-10-11 06:50] LABS: Hematocrit 31.5 % (37.0-47.0)
[2021-10-11 08:00] VITALS: BP 105/74; PULSE 101; RESP 18; TEMP 36.7; O2SAT 99
--- NOTE | 2021-10-11 10:00 | [facility].ACPN2 ---
Internal Medicine - PN: Subj *Date: 10/11/21 *Time: 10:00 Interval history: She is doing very well this morning. Her lochia is normal. Her hemoglobin is stable. She feels well. Exam Vital signs and Labs for Last 24 Hours: Temp Pulse Resp BP Pulse Ox 98.1 F 101 H 18 105/74 L 99 10/11/21 08:00 10/11/21 08:00 10/11/21 08:00 10/11/21 08:00 10/11/21 08:00 Laboratory Results - last 24 hr 10/11/21 06:36: Hgb 10.0 L, Hct 31.5 L I & O for Last 24 hours: Intake & Output 10/08/21 10/09/21 10/10/21 10/11/21 11:59 11:59 11:59 11:59 Weight 147 lb 5.994 oz Microbiology Reports for the Last 24 Hours: Microbiology 10/10/21 05:20 Urine,Clean Catch Urine Culture - Preliminary NO GROWTH AFTER 24 HOURS - Constitutional no acute distress - *Routine HEENT Exam Head: Present: normocephalic Eye: Present: EOMI, PERRL ENT: Present: mucous membranes moist Assessment and Plan (1) Normal delivery at term Status: Acute Category: Medical Code(s): O80 - Encounter for full-term uncomplicated delivery (2) Hx of Santos thyroiditis Status: Chronic Category: Medical Code(s): Z86.39 - Personal history of other endocrine, nutritional and metabolic disease (3) Hypothyroidism Problem details: synthroid 125--increased to 150 at 33 wks Status: Chronic Category: Medical Code(s): E03.9 - Hypothyroidism, unspecified - Assessment and plan all Dx Assessment and Plan for all problems:: She is doing very well today. We will plan to send her home tomorrow.
[2021-10-11 11:50] VITALS: BP 102/69; PULSE 80; RESP 17; TEMP 36.7; O2SAT 100
--- NOTE | 2021-10-11 16:49 | [facility].OBDCSM ---
General - General Admission date:: 10/10/21 Discharge date: 10/11/21 HPI - History of Present Illness History of present illness: She is a 26-year-old 2 para 1 at 39 weeks gestational age. She was brought in for induction of labor at term. Hospital Course Hospital Course: She was started on IV oxytocin had her membranes ruptured. Under labor epidural she progressed to full dilation and delivered spontaneously a liveborn female child at 4:39 PM in the afternoon of Oct 10, 2021. The baby had Apgars of 8 at 1 min and 8 at 5 min. She weighed 9 pounds 0 ounces and was 19-1/2 inches long. Patient is done well and has remained afebrile without her hospitalization. She is eating and drinking and ambulating. She is breast-feeding. She has O+ blood, she is rubella immune and was group B streptococcus negative. Her retail field representative is Dr. Conteh. She is discharged home to follow-up with me in approximately 2 weeks time. She'll continue with her vitamins and iron. She was given the usual instructions with respect to limiting her activity, driving and sexual activity. Her condition on discharge is stable and improved. Rhogam Administration: Not Indicated Objective Vital signs: Temp Pulse Resp BP Pulse Ox 98.0 F 80 17 102/69 L 100 10/11/21 11:50 10/11/21 11:50 10/11/21 11:50 10/11/21 11:50 10/11/21 11:50 no acute distress - *Routine HEENT Exam Head: Present: normocephalic Eye: Present: EOMI, PERRL ENT: Present: mucous membranes moist Results Labs on day of discharge: Labs from last 24 hours 10/11/21 06:36 Hgb 10.0 L Hct 31.5 L Preliminary micro results at discharge 10/10/21 05:20 Urine Culture - Preliminary Urine,Clean Catch NO GROWTH AFTER 24 HOURS DS: Diagnosis - Discharge Diagnosis (1) Normal delivery at term Status: Acute (2) Hx of Santos thyroiditis Status: Chronic (3) Hypothyroidism Status: Chronic Problem details: synthroid 125--increased to 150 at 33 wks Discharge Plan - Patient Discharge Instructions ACTIVITY: No heavy lifting DIET: continue same diet Additional Instructions: Nothing in the vagina for 6 weeks No tub baths Drink plenty of fluids Patient Instructions: Depression, Hemorrhage, DI for Labor and Delivery, Vaginal , DI for Pre-eclampsia, [facility] Post Discharge Instructions, Preventing the Spread of Coronavirus Discharge Instructions - Follow up Plan Follow up with: Art Valenzuela MD [Staff Physician] - Disposition: Home, Self-Care Condition at discharge:: Stable Home Medications: Home Medications Medication Instructions Recorded Confirmed Type Vit No.126/Iron/Folic 1 tab PO DAILY 09/18/21 10/10/21 History [Classic ] Ferrous Sulfate 325 mg PO DAILY 10/10/21 10/10/21 History Levothyroxine Sodium [Synthroid 112 mcg PO DAILY 10/10/21 10/10/21 History 112mcg (0.112mg) tablet] Prescriptions/Medication Reconciliation: Continued Ferrous Sulfate 325 mg PO DAILY Vit No.126/Iron/Folic [Classic ] 1 tab PO DAILY Levothyroxine Sodium [Synthroid 112mcg (0.112mg) tablet] 112 mcg PO DAILY - Problem Reconciliation Problems Reviewed?: Yes
== END 2021-10-11 17:38 | disposition home or self-care (01) | DRG 807 ==
PROVIDERS: Admitting Provider Nurse Practitioner Obstetrics & Gynecology; Visit Provider Nurse Practitioner Obstetrics & Gynecology
DX: O69.81X0 Labor and delivery complicated by cord around neck, without compression, not applicable or unspecified (principal); Z37.0 Single live birth; Z3A.39 39 weeks gestation of pregnancy
CPT/HCPCS: 59409; 59025; 80305; 81001; 85007; 85014; 85018; 85048; 85049; 86850; 87086; 94761; C1758; C9803; G0283; J0595; U0003; U0005

== ENCOUNTER → 2022-02-07 12:27 | Outpatient (CLI) | payer MEDICAID, SELFPAY ==
--- NOTE | 2022-02-07 12:27 | US_ITS ---
PROCEDURE INFORMATION: Exam: US Left Breast, Complete Exam date and time: 02/07/2022 12:41 PM Age: 26 years old Clinical indication: Mass, lump, or swelling; Left; Additional info: Breast cyst TECHNIQUE: Imaging protocol: Complete ultrasound of all four quadrants of the Left breast and the retroareolar regions, including ultrasound of the axilla when performed. COMPARISON: No relevant prior studies available. FINDINGS: Breast: 5.8 x 4.9 cm mass in the lower outer quadrant of the left breast in the area of palpable concern. Uniform intermediate echoes are seen throughout the mass. No information given regarding presence or absence of mobility of internal echoes within the mass during imaging. There is posterior acoustic enhancement. IMPRESSION: Large mass in the area of palpable concern. Hemorrhagic cyst versus fibroadenoma. Recommend FNA/biopsy. ASSESSMENT: BI-RADS 0. Additional assessment needed.
== END ==
PROVIDERS: PCP Nurse Practitioner Obstetrics & Gynecology; Visit Provider Nurse Practitioner Obstetrics & Gynecology
DX: N60.02 Solitary cyst of left breast (principal)
CPT/HCPCS: 76641

== ENCOUNTER → 2022-02-17 09:11 | Outpatient (CLI) | payer MEDICAID, SELFPAY ==
--- NOTE | 2022-02-17 09:11 | US_ITS ---
FINAL REPORT CLINICAL HISTORY: .left breast mass FINDINGS: LEFT BREAST ULTRASOUND GUIDED FLUID COLLECTION DRAINAGE History: Left breast fluid collection. Mastitis. Technique: Left breast was prepped in routine sterile fashion. Standard written informed consent was obtained. Local anesthesia was achieved with 1% lidocaine. A dominant fluid collection was identified in the left lower outer quadrant. An 18-gauge needle was directed into the fluid collection. Approximately 110 mL's of purulent fluid was drained from the fluid collection. There was a small component of residual fluid collection estimated to be 10-20 ML's. Sample of the aspirate was sent for culture and sensitivity. Procedure was well tolerated. IMPRESSION: 1. Technically successful ultrasound guided drainage of vast majority of presumed abscess of the left breast 2. Aspirate sent for culture and sensitivity 3. Findings communicated to the referring physician's office. Patient was not on antibiotics at the time of the procedure. This was also communicated to the referring's office. Authenticated and ERN
== END ==
PROVIDERS: PCP Nurse Practitioner Obstetrics & Gynecology; Visit Provider Surgery
DX: N61.1 Abscess of the breast and nipple (principal)
CPT/HCPCS: 10005; 87070; 87205